=== PATIENT | female | born 1955 | race Caucasian/White ===

== ENCOUNTER 2017-01-13 07:29 | Day surgery (SDC) | payer BC ==
[~2017-01-13] VITALS: Ht 172.7 cm; Wt 66.2 kg
[~2017-01-13 07:29] MED LIST: CHANTIX1 MG PO
[2017-01-13 11:15] VITALS: BP 102/71
== END 2017-01-13 11:35 | disposition home or self-care (01) | DRG 951 ==
LOC: ENDO 07:29
PROVIDERS: ATTEND Surgery
PROC: 0DJD8ZZ Inspection of Lower Intestinal Tract, Via Natural or Artificial Opening Endoscopic (ICD-10-PCS; principal; 2017-01-13)
DX: Z12.11 Encounter for screening for malignant neoplasm of colon (principal); Q43.9 Congenital malformation of intestine, unspecified